=== PATIENT | female | born 1965 | race African-American/Black ===

== ENCOUNTER 2019-09-29 11:03 | Inpatient (IN) | payer MEDICAID ==
[~2019-09-29] VITALS: Ht 162.6 cm; Wt 79.8 kg
[2019-09-29] MEDS ORDERED: ALBUTEROL (11:11)
[2019-09-29] MEDS ORDERED: PHEN100C4 PO (11:11)
[2019-09-29] MEDS ORDERED: SODIUM CHLORIDE 0.9% 1,000 ML IV SCH ×2 (11:34→15:51)
[2019-09-29] MEDS ORDERED: FAMOTIDINE 20MG/2ML VIAL IV ONE (11:45)
[2019-09-29] MEDS ORDERED: METHYLPREDNISOLONE SOD SUCC 125 MG/2 ML VIAL IV ONE (11:45)
[2019-09-29] MEDS ORDERED: DIPHENHYDRAMINE 50MG/ML VIAL IV ONE (11:45)
[2019-09-29] MEDS ORDERED: EPINEPHRINE 1:1000 1 MG/ML AMP IM ONE (14:30)
[2019-09-29 15:22] LABS: CHLORIDE 110 mEq/L (98-107); INR 1.1; PROTHROMBIN TIME 11.2 sec (9.6-11.0)
[2019-09-29 15:28] LABS: HEMATOCRIT. 43.6 % (36.0-48.0); HEMOGLOBIN. 14.4 g/dL (12.0-16.0); MEAN CORPUSCULAR HEMOGLOBIN 31.3 pg (28.0-32.0); MEAN CORPUSCULAR VOLUME 94.8 fL (81.0-99.0); MEAN PLATELET VOLUME 8.7 fl (7.4-10.4); PLATELET 197 x1000/uL (130-400)
[2019-09-29] MEDS ORDERED: ONDANSETRON HCL 4MG/2ML INJ IV PRN (16:00)
[2019-09-29] MEDS ORDERED: IPRATROPIUM/ALBUTEROL 0.5-3(2.5)MG/3ML NEB HHN PRN (16:00)
[2019-09-29] MEDS ORDERED: EPINEPHRINE 0.1MG/ML (1:10,000) 10ML SYR IV PRN (16:00)
[2019-09-29] MEDS ORDERED: GUAIFENESIN 200MG/10ML SUGAR FREE UDC PO PRN (16:00)
[2019-09-29] MEDS ORDERED: LORAZEPAM 2MG/ML CPJ IV PRN (16:30)
[2019-09-29 16:54] LABS: PLATELET ESTIMATE NORMAL
[2019-09-29 17:00] VITALS: BP 145/79
[2019-09-29 17:23] LABS: PHOSPHORUS 2.5 mg/dL (2.5-4.9)
[2019-09-29] MEDS: PHENYTOIN SODIUM EXTENDED 100MG CAPSULE PO SCH (19:09)
[2019-09-29] MEDS: DIPHENHYDRAMINE 50MG/ML VIAL IV SCH ×2 (19:09→20:00)
[2019-09-29 19:24] VITALS: BP 145/79
[2019-09-29 20:00] VITALS: BP 136/70
[2019-09-29] MEDS ORDERED: TRAZODONE HCL 50MG TABLET PO SCH (21:00)
[2019-09-29] MEDS: FAMOTIDINE 20MG/2ML VIAL IV SCH (21:10)
[2019-09-29] MEDS: ACETAMINOPHEN 325MG TABLET PO PRN (21:13)
[2019-09-29] MEDS ORDERED: DEXTROSE 50% WATER 50ML SYRINGE IV PRN (23:30)
[2019-09-30] VITALS: BP 130/64
[2019-09-30] MEDS: DIPHENHYDRAMINE 50MG/ML VIAL IV SCH ×4 (00:36→11:50)
[2019-09-30 04:00] VITALS: BP 143/68
[2019-09-30] MEDS: ACETAMINOPHEN 325MG TABLET PO PRN ×2 (04:07→10:35)
[2019-09-30] MEDS ORDERED: BLOOD SUGAR DIAGNOSTIC STRIP TEST SCH (06:45)
[2019-09-30] MEDS ORDERED: INSULIN LISPRO 100 UNITS/ML SUBCUT SCH (07:15)
[2019-09-30 07:54] LABS: CHLORIDE 111 mEq/L (98-107)
[2019-09-30 08:00] VITALS: BP 134/83
[2019-09-30 08:07] LABS: LDL CHOLESTEROL 83 mg/dL (5-100)
[2019-09-30 08:09] LABS: HDL CHOLESTEROL 58 mg/dL (40-59)
[2019-09-30] MEDS: PHENYTOIN SODIUM EXTENDED 100MG CAPSULE PO SCH (08:24)
[2019-09-30] MEDS: FAMOTIDINE 20MG/2ML VIAL IV SCH (08:26)
[2019-09-30] MEDS ORDERED: FLUOXETINE HCL 20MG CAPSULE PO SCH (09:00)
[2019-09-30] MEDS ORDERED: HALOPERIDOL 5MG TABLET PO SCH (09:00)
[2019-09-30] MEDS ORDERED: ARIPIPRAZOLE 5MG TABLET PO SCH (09:00)
[2019-09-30 12:00] VITALS: BP 134/83
[2019-09-30] MEDS ORDERED: FAMO20TA8 MT (12:07)
[2019-09-30 12:46] VITALS: BP 134/83
== END 2019-09-30 15:25 | disposition home or self-care (01) | DRG 811 ==
LOC: ER 11:22 → 5WST 14:46 → ENRESERV 16:10
PROVIDERS: ADMIT Internal Medicine; ATTEND Internal Medicine
DX: T78.3XXA Angioneurotic edema, initial encounter (principal); F20.9 Schizophrenia, unspecified; T88.6XXA Anaphylactic reaction due to adverse effect of correct drug or medicament properly administered, initial encounter; T50.995A Adverse effect of other drugs, medicaments and biological substances, initial encounter; R73.9 Hyperglycemia, unspecified; J45.909 Unspecified asthma, uncomplicated; F17.200 Nicotine dependence, unspecified, uncomplicated; Y92.89 Other specified places as the place of occurrence of the external cause
CPT/HCPCS: 36415; 71045; 80053; 80061; 82962; 83735; 84100; 84443; 84550; 85025; 93005; 93970; 94640; 96374; 99285; J1200; J1630; J2930; J3490